=== PATIENT | female | born 1955 | race Caucasian/White ===

== ENCOUNTER → 2016-05-05 | Outpatient (CLI) | payer OTHER ==
[~2016-05-05] MED LIST: ASPI81TA28 PO; BENZ100C84 PO; CALC-51 PO; CETI10TA84 PO; COEN100C7 PO; MOME110A INH; MULT-513 PO; OMEG10007 PO; PANT40TA PO; PRAV20TA PO; VNTHFA/IN INH
== END | disposition home or self-care (01) ==
LOC: C.PAPS 16:34
PROVIDERS: ATTEND Obstetrics & Gynecology
DX: Z01.419 Encounter for gynecological examination (general) (routine) without abnormal findings (principal)

== ENCOUNTER → 2016-05-19 | Outpatient (CLI) | payer OTHER ==
--- NOTE | 2016-05-20 12:25 | MAMMOGRAPHY REPORT ---
BILATERAL DIGITAL SCREENING MAMMOGRAM WITH CAD: 05/19/2016 CLINICAL HISTORY: Routine screening examination. TECHNIQUE: Current study was also evaluated with a Computer Aided Detection (CAD) system. COMPARISON: Comparison is made to exams dated: 05/15/2015 mammogram, 04/20/2014 mammogram, 03/01/2013 mammogram, and 04/25/2009 mammogram - [facility]. BREAST COMPOSITION: There are scattered areas of fibroglandular density in both breasts. FINDINGS: The parenchymal pattern is unchanged. No developing mass, architectural distortion or clu ster of suspicious microcalcifications is seen in either breast. IMPRESSION: ACR BI-RADS CATEGORY 2: BENIGN There is no mammographic evidence of malignancy. A 1 year screening mammogram is recommended. The p atient will receive written notification of the results. Approximately 10% of breast cancers are not detected with mammography. A negative mammographic repor t should not delay biopsy if a clinically suggestive mass is present. Antionette Villaseñor M.D. ay/:05/19/2016 15:14:20 Singeing Torch Operator: Ness IBARRA(Sina)(Albertina), [facility] letter sent: Normal 1/2 BI-RADS Code: ACR BI-RADS Category 2: Benign
== END | disposition home or self-care (01) ==
LOC: C.MAMM 10:27
PROVIDERS: ATTEND Obstetrics & Gynecology
DX: Z12.31 Encounter for screening mammogram for malignant neoplasm of breast (principal)

== ENCOUNTER 2016-06-12 20:56 | Emergency (ER) | payer OTHER ==
[~2016-06-12] VITALS: Ht 157.5 cm; Wt 78.2 kg
[2016-06-12 21:07] VITALS: TEMP 36.9; Ht 157.5 cm; Wt 78.2 kg
[2016-06-12 21:25] VITALS: O2SAT 97
[2016-06-12] MEDS ORDERED: PANT40TA PO (21:40)
[2016-06-12] MEDS ORDERED: CETI10TA84 PO (21:40)
[2016-06-12] MEDS ORDERED: COEN100C7 PO (21:40)
[2016-06-12] MEDS ORDERED: ASPI81TA28 PO (21:40)
[2016-06-12] MEDS ORDERED: CALC-51 PO (21:40)
[2016-06-12] MEDS ORDERED: BENZ100C84 PO (21:40)
[2016-06-12] MEDS ORDERED: PRAV20TA PO (21:40)
[2016-06-12] MEDS ORDERED: VNTHFA/IN INH (21:40)
[2016-06-12] MEDS ORDERED: OMEG10007 PO (21:40)
[2016-06-12] MEDS ORDERED: MOME110A INH (21:40)
[2016-06-12] MEDS ORDERED: MULT-513 PO (21:40)
[2016-06-12 22:17] LABS: BASO % 0.4 %; BASO ABS # 0.03 K/uL (0-0.2); COMPLETE YES; EOS % 2.6 %; IG% 0.1 %; LYMPH % 43.1 %; MEAN CELL VOLUME 90.3 fL (80-100); MEAN CORPUSCULAR HEMOGLOBIN 30.8 pg (25-34); MEAN CORPUSCULAR HGB CONC 34.1 g/dl (32-36); MEAN PLATELET VOLUME 9.1 fL (7.4-10.4); MONO % 9.5 %; NEUT % 44.3 %; PLATELET COUNT 288 K/uL (130-400); RED BLOOD COUNT 4.54 M/uL (4.2-5.4); WHITE BLOOD COUNT 6.96 K/uL (4.8-10.8)
[2016-06-12 22:32] LABS: PARTIAL THROMBOPLASTIN RATIO 1.1; PROTHROMBIN TIME (PATIENT) 10.6 SECONDS (9.0-12.0)
[2016-06-12 22:36] LABS: ALT/SGPT 21 U/L (12-78); BLOOD UREA NITROGEN 24 mg/dl (7-18); BUN/CREATININE RATIO 21.7 (10-20); CALCIUM 9.3 mg/dl (8.5-10.1); CARBON DIOXIDE 29 mmol/L (21-32); CHLORIDE 103 mmol/L (98-107); GLUCOSE 94 mg/dl (70-99); POTASSIUM 3.5 mmol/L (3.5-5.1); SODIUM 139 mmol/L (136-145)
[2016-06-12 22:41] LABS: ALKALINE PHOSPHATASE 85 U/L (45-117); AST/SGOT 18 U/L (15-37)
[2016-06-12 23:46] VITALS: BP 126/71; PULSE 86; O2SAT 95
--- NOTE | 2016-06-13 01:30 | EMERGENCY ROOM VISIT NOTE ---
ED Visit Note First contact with patient: 22:59 Chief Complaint: Palpitations. History of Present Illness: Ms. Hurley is a 60 year-old white female who ambulates into the ED accompanied by male friend complaining of heart palpitations. Historically patient reports she started experiencing palpitations on Thursday, 5 days ago. She reports initially they were intermittent. She was seen at her PCPs office on Thursday and reported an EKG was performed which showed PVCs. She was discharged to home. She was set up for laboratory testing today and Holter monitoring next week. Patient reports a acute onset of worsening palpitations that started approximately 12 hours prior to arrival at the hospital. Since that time she reports they have been intermittent and at times had been more severe and at other times less severe. Associated with her palpitations she reports that approximately 7 hours ago she developed a warm sensation over the upper midsternal area that extended into the lateral aspect of the left neck and upper left arm. Currently she rates that warm sensation 3/10. She has not identified any aggravating or alleviating factors related to those sensations. She has not taken any medications or therapies for that sensation prior to arrival at the hospital. She denies any associated symptoms including fevers, chills, sweats, skin eruptions, skin color changes, headache, dizziness, lightheadedness, orthopnea, dependent edema, previous clots, claudication, cramping, recent surgery/inactivity/extended travel, abdominal pain, nausea, vomiting, back/flank pain. Additionally she reports she did contact her family physician today who encouraged her to keep her upcoming appointment tomorrow morning. But patient did report she was not comfortable waiting and worrying all night about her palpitations. Review of Systems: As noted above in history of present illness. All body systems were reviewed and found to be negative as noted above. Past Medical History: Asthma, gastroesophageal reflux. Current Medications: Medications Dose Route/Sig Max Daily Dose Days Date Category Zyrtec (Cetirizine HCl) 10 Mg Tab 10 Mg PO DAILY 06/12/16 Reported Ventolin Hfa (Albuterol) 200 Puffs/74371 Mcg Aers 1-2 Puffs INH Q6H PRN 06/12/16 Reported Pravachol (Pravastatin Sodium) 20 Mg Tab 20 Mg PO HS 06/12/16 Reported Protonix (Pantoprazole Sodium) 40 Mg Tab 40 Mg PO DAILY 06/12/16 Reported Mvi With Minerals (Multivitamins/Minerals) Tab 1 Tab PO DAILY 06/12/16 Reported Seymour-3 (Fish Oil) 1 Ea Cap 1 Cap PO DAILY 06/12/16 Reported Coq10 (Coenzyme Q10 (Ubidecarenone)) 100 Mg Cap 100 Mg PO DAILY 06/12/16 Reported Calcium (Calcium Carbonate-Vitamin D) 1 Tab Tab 2 Tabs PO DAILY 06/12/16 Reported Tessalon Perles (Benzonatate) 100 Mg Cap 100 Mg PO TID 06/12/16 Reported Aspirin Ec (Aspirin) 81 Mg Tab 81 Mg PO DAILY 06/12/16 Reported Asmanex 30 Metered Doses (Mometasone Furoate (Inhalation) 110 Mcg/Inh Aer 1 Puff INH DAILY PRN 06/12/16 Reported Allergies to Medications: Patient denies. Social History: Patient is currently employed; she feels safe in her home environment; she denies tobacco use. Physical Examination: Vital Signs: Date Time Temp Pulse Resp B/P Pulse Ox O2 Delivery O2 Flow Rate FiO2 06/12/16 23:46 86 18 126/71 95 06/12/16 22:26 78 16 132/76 95 06/12/16 21:25 97 Room Air 06/12/16 21:25 86 16 182/85 99 06/12/16 21:23 89 06/12/16 21:07 36.9 92 20 165/98 96 Room Air GENERAL: 60-year-old female in mild distress due to symptoms, nontoxic-appearing , afebrile and hemodynamically stable. Patient is very anxious. NEUROLOGICAL: Awake, alert and oriented to person, place and time. Answering questions appropriately and following commands. Normal gait. Good hand eye coordination. SKIN: Warm, dry and pink. No soft tissue eruptions or trauma noted. HEENT: Atraumatic and normocephalic. PERRL. Sclera white and conjunctiva pink. Oral cavity moist and pink. Pharynx is nonerythematous or edematous. Speech normal. No lymphadenopathy. Trachea midline. No jugular venous distention. BACK: No tenderness over the bony spine. No CVA tenderness. No carotid bruits. THORAX: Lungs sounds are clear to auscultation and equal bilaterally with symmetrical chest wall. No wheezing, rales or rhonchi. No crepitus, tenderness , subcutaneous air or deformities noted. HEART: Regular rate and rhythm. No gallops, rubs or murmurs are appreciated. No lifts, heaves or thrills. PMI is not displaced. ABDOMEN: Flat, soft and nontender. Positive bowel sounds in all quadrants. No guarding, rigidity or organomegaly. EXTREMITIES: Moves all extremities well on command and with purpose. All distal neurovascular statuses are intact and equal bilaterally. No dependent edema or calf tenderness/cords. ED Course: Patient is assessed as noted above. Laboratory Testing: Test 06/12/16 21:15 Range/Units White Blood Count 6.96 4.8-10.8 K/uL Red Blood Count 4.54 4.2-5.4 M/uL Hemoglobin 14.0 12.0-16.0 g/dL Hematocrit 41.0 37-47 % Mean Corpuscular Volume 90.3 80-100 fL Mean Corpuscular Hemoglobin 30.8 25-34 pg Mean Corpuscular Hemoglobin Concent 34.1 32-36 g/dl Platelet Count 288 130-400 K/uL Mean Platelet Volume 9.1 7.4-10.4 fL Neutrophils (%) (Auto) 44.3 % Lymphocytes (%) (Auto) 43.1 % Monocytes (%) (Auto) 9.5 % Eosinophils (%) (Auto) 2.6 % Basophils (%) (Auto) 0.4 % Neutrophils # (Auto) 3.08 1.4-6.5 K/uL Lymphocytes # (Auto) 3.00 1.2-3.4 K/uL Monocytes # (Auto) 0.66 0.11-0.59 K/uL Eosinophils # (Auto) 0.18 0-0.5 K/uL Basophils # (Auto) 0.03 0-0.2 K/uL RDW Standard Deviation 43.0 36.4-46.3 fL RDW Coefficient of Variation 13.1 11.5-14.5 % Immature Granulocyte % (Auto) 0.1 % Immature Granulocyte # (Auto) 0.01 0.00-0.02 K/uL Prothrombin Time 10.6 9.0-12.0 SECONDS Prothromb Time International Ratio 1.0 0.9-1.1 Activated Partial Thromboplast Time 27.7 21.0-31.0 SECONDS Partial Thromboplastin Ratio 1.1 Sodium Level 139 136-145 mmol/L Potassium Level 3.5 3.5-5.1 mmol/L Chloride Level 103 98-107 mmol/L Carbon Dioxide Level 29 21-32 mmol/L Anion Gap 7.0 3-11 mmol/L Blood Urea Nitrogen 24 7-18 mg/dl Creatinine 1.10 0.60-1.20 mg/dl Est Creatinine Clear Calc Drug Dose 51.4 ml/min Estimated GFR () 62.3 Estimated GFR (Non- 53.8 BUN/Creatinine Ratio 21.7 10-20 Random Glucose 94 70-99 mg/dl Calcium Level 9.3 8.5-10.1 mg/dl Total Bilirubin 0.4 0.2-1 mg/dl Aspartate Amino Transf (AST/SGOT) 18 15-37 U/L Alanine Aminotransferase (ALT/SGPT) 21 12-78 U/L Alkaline Phosphatase 85 45-117 U/L Troponin I < 0.015 0-0.045 ng/ml Total Protein 8.0 6.4-8.2 gm/dl Albumin 4.0 3.4-5.0 gm/dl Globulin 4.0 2.5-4.0 gm/dl Albumin/Globulin Ratio 1.0 0.9-2 EKG: Was read by myself and reviewed with Dr. Nova; shows normal sinus rhythm with a ventricular rate of 82 bpm. Normal axis, intervals and complexes. No acute ST changes indicating ischemia, injury or infarction. Rhythm strips: Were reviewed by myself and shows a continuous normal sinus rhythm with occasional unifocal PVCs no more than 2 PVCs per 6 seconds. Patient was reassessed multiple times during her stay in the emergency department. Patient's case was reviewed with Dr. Nova; we agreed on diagnostic approach , treatment, disposition and plan. Patient was educated about tonight's findings and instructed on her treatment plan; she verbalizes understanding and agreement with this plan Clinical Impression: Palpitations. Decision-Making: Initially my differential diagnosis I considered acute coronary syndrome, thoracic aneurysm, pneumothorax, arrhythmias and other causes. Disposition: Patient discharged home in stable condition accompanied by her ; prior to departure she was reassessed and subjectively reported she was still having some mild palpitations but had resolution of the warmness sensation. Plan: Patient was encouraged to keep her upcoming appointment with her primary care provider. Patient was encouraged return to the ED for chest pain, shortness of breath, uncontrolled palpitations or any new/concerning symptoms.
== END 2016-06-12 23:46 | disposition home or self-care (01) ==
LOC: C.EDB 20:58 → C.EDA 23:46
DX: R00.2 Palpitations (principal); K21.9 Gastro-esophageal reflux disease without esophagitis; J45.909 Unspecified asthma, uncomplicated; Z79.82 Long term (current) use of aspirin; Z79.899 Other long term (current) drug therapy

== ENCOUNTER → 2016-06-12 | Outpatient (CLI) | payer OTHER ==
[2016-06-12 12:22] LABS: BASO % 0.6 %; BASO ABS # 0.03 K/uL (0-0.2); COMPLETE YES; EOS % 3.3 %; HEMATOCRIT 40.3 % (37-47); IG% 0.2 %; LYMPH ABS # 2.19 K/uL (1.2-3.4); MEAN CELL VOLUME 88.6 fL (80-100); MEAN CORPUSCULAR HEMOGLOBIN 29.9 pg (25-34); MEAN CORPUSCULAR HGB CONC 33.7 g/dl (32-36); MEAN PLATELET VOLUME 9.1 fL (7.4-10.4); NEUT % 43.9 %; PLATELET COUNT 295 K/uL (130-400); RED BLOOD COUNT 4.55 M/uL (4.2-5.4); WHITE BLOOD COUNT 5.09 K/uL (4.8-10.8)
[2016-06-12 12:29] LABS: AST/SGOT 14 U/L (15-37); BLOOD UREA NITROGEN 18 mg/dl (7-18); BUN/CREATININE RATIO 18.4 (10-20); CALCIUM 9.1 mg/dl (8.5-10.1); CARBON DIOXIDE 25 mmol/L (21-32); CHLORIDE 106 mmol/L (98-107); GLUCOSE 93 mg/dl (70-99); POTASSIUM 3.9 mmol/L (3.5-5.1); SODIUM 140 mmol/L (136-145)
[2016-06-12 12:40] LABS: ALT/SGPT 21 U/L (12-78); CHOLESTEROL 208 mg/dl (0-200); CHOLESTEROL/HDL RATIO 3.1; HDL CHOLESTEROL 68 mg/dl; LDL CHOLESTEROL CALCULATED 122 mg/dl; TRIGLYCERIDES 92 mg/dl (0-150); VERY LOW DENSITY LIPOPROT CALC 18 mg/dl
== END | disposition home or self-care (01) ==
LOC: C.LABPBG 07:47
PROVIDERS: ATTEND Physician Assistant
DX: R31.29 Other microscopic hematuria (principal); E78.5 Hyperlipidemia, unspecified

== ENCOUNTER → 2016-07-03 | Outpatient (CLI) | payer OTHER ==
--- NOTE | 2016-07-03 08:54 | DIAGNOSTIC IMAGING REPORT ---
CHEST 2 VIEWS ROUTINE HISTORY: R06.02 SOB (shortness of breath) on [id number] COMPARISON: Chest 03/08/2015. FINDINGS: The lungs are clear. Cardiac silhouette is normal in size. No pleural effusions. No pneumothorax. IMPRESSION: No acute process. Electronically signed by: Denis Borden M.D. 07/03/2016 8:52 AM Dictated Date/Time: 07/03/2016 8:51 AM
[2016-07-03 09:54] LABS: URINE APPEARANCE CLEAR (CLEAR); URINE BILIRUBIN NEG (NEG); URINE COLOR YELLOW; URINE EPITHELIAL CELL AUTO 0-5 /lpf (0-5); URINE NITRITE NEG (NEG); URINE PH 5.5 (4.5-7.5); URINE SPECIFIC GRAVITY 1.018 (1.000-1.030); UROBILINOGEN NEG (NEG)
[2016-07-03 10:04] LABS: MANUAL MICROSCOPIC REQUIRED? NO; REVIEW REQ? NO
== END | disposition home or self-care (01) ==
LOC: C.RAD1850 08:08
PROVIDERS: ATTEND Internal Medicine
DX: R06.02 Shortness of breath (principal); R39.9 Unspecified symptoms and signs involving the genitourinary system

== ENCOUNTER → 2016-11-06 | Outpatient (CLI) | payer OTHER ==
[2016-11-06 12:50] LABS: HEMATOCRIT 39.5 % (37-47); MEAN CELL VOLUME 92.3 fL (80-100); MEAN CORPUSCULAR HEMOGLOBIN 30.1 pg (25-34); MEAN CORPUSCULAR HGB CONC 32.7 g/dl (32-36); MEAN PLATELET VOLUME 9.4 fL (7.4-10.4); PLATELET COUNT 291 K/uL (130-400); RED BLOOD COUNT 4.28 M/uL (4.2-5.4); WHITE BLOOD COUNT 4.79 K/uL (4.8-10.8)
[2016-11-06 13:32] LABS: ALT/SGPT 20 U/L (12-78); AST/SGOT 15 U/L (15-37); BLOOD UREA NITROGEN 18 mg/dl (7-18); BUN/CREATININE RATIO 19.4 (10-20); CALCIUM 8.7 mg/dl (8.5-10.1); CARBON DIOXIDE 27 mmol/L (21-32); CHLORIDE 108 mmol/L (98-107); CHOLESTEROL 204 mg/dl (0-200); CREATININE 0.93 mg/dl (0.60-1.20); GLUCOSE 92 mg/dl (70-99); SODIUM 140 mmol/L (136-145)
[2016-11-06 13:42] LABS: CHOLESTEROL/HDL RATIO 3.5; HDL CHOLESTEROL 59 mg/dl; LDL CHOLESTEROL CALCULATED 126 mg/dl; TRIGLYCERIDES 96 mg/dl (0-150); VERY LOW DENSITY LIPOPROT CALC 19 mg/dl
== END | disposition home or self-care (01) ==
LOC: C.LABPBG 08:07
PROVIDERS: ATTEND Internal Medicine
DX: E78.5 Hyperlipidemia, unspecified (principal); R00.2 Palpitations

== ENCOUNTER → 2017-04-03 | Outpatient (CLI) | payer OTHER ==
[2017-04-03 17:20] LABS: BASO % 0.8 %; BASO ABS # 0.04 K/uL (0-0.2); EOS % 2.5 %; EOS ABS # 0.12 K/uL (0-0.5); HEMOGLOBIN 13.7 g/dL (12.0-16.0); LYMPH % 32.6 %; LYMPH ABS # 1.56 K/uL (1.2-3.4); MEAN CELL VOLUME 91.9 fL (80-100); MEAN CORPUSCULAR HEMOGLOBIN 30.7 pg (25-34); MEAN CORPUSCULAR HGB CONC 33.4 g/dl (32-36); MEAN PLATELET VOLUME 9.3 fL (7.4-10.4); MONO % 7.5 %; MONO ABS # 0.36 K/uL (0.11-0.59); NEUT % 56.6 %; PLATELET COUNT 279 K/uL (130-400); RED CELL DISTRIBUTION WIDTH CV 12.8 % (11.5-14.5); RED CELL DISTRIBUTION WIDTH SD 43.2 fL (36.4-46.3); WHITE BLOOD COUNT 4.78 K/uL (4.8-10.8)
[2017-04-03 17:31] LABS: ALT/SGPT 23 U/L (12-78); AST/SGOT 16 U/L (15-37); BLOOD UREA NITROGEN 15 mg/dl (7-18); CALCIUM 9.3 mg/dl (8.5-10.1); CARBON DIOXIDE 30 mmol/L (21-32); CHOLESTEROL 186 mg/dl (0-200); CREATININE 0.98 mg/dl (0.60-1.20); GLUCOSE 92 mg/dl (70-99); POTASSIUM 3.9 mmol/L (3.5-5.1); SODIUM 136 mmol/L (136-145)
[2017-04-03 17:36] LABS: LDL CHOLESTEROL CALCULATED 105 mg/dl
== END | disposition home or self-care (01) ==
LOC: C.LABPBG 10:52
PROVIDERS: ATTEND Internal Medicine
DX: R19.5 Other fecal abnormalities (principal)

== ENCOUNTER → 2017-06-02 | Outpatient (CLI) | payer OTHER ==
--- NOTE | 2017-06-03 15:36 | MAMMOGRAPHY REPORT ---
BILATERAL DIGITAL SCREENING MAMMOGRAM TOMOSYNTHESIS WITH CAD: 06/02/2017 CLINICAL HISTORY: Routine screening. Patient has no complaints. TECHNIQUE: Breast tomosynthesis in addition to standard 2D mammography was performed. Current study was also evaluated with a Computer Aided Detection (CAD) system. COMPARISON: Comparison is made to exams dated: 05/19/2016 mammogram, 05/15/2015 mammogram, 04/20/2014 m ammogram, 03/01/2013 mammogram, 04/25/2009 mammogram - [facility], and 12/09/2007. BREAST COMPOSITION: There are scattered areas of fibroglandular density in both breasts. FINDINGS: The parenchymal pattern is unchanged. No developing mass, architectural distortion or clus ter of suspicious microcalcifications is seen in either breast. IMPRESSION: ACR BI-RADS CATEGORY 2: BENIGN There is no mammographic evidence of malignancy. A 1 year screening mammogram is recommended. The pa tient will receive written notification of the results. Approximately 10% of breast cancers are not detected with mammography. A negative mammographic report should not delay biopsy if a clinically suggestive mass is present. Antionette Villaseñor M.D. ay/:06/02/2017 16:19:55 Top Distribution Executive: Mey IBARRA(Sina)(M), [facility] letter sent: Normal 1/2 BI-RADS Code: ACR BI-RADS Category 2: Benign
== END | disposition home or self-care (01) ==
LOC: C.MAMM 10:19
PROVIDERS: ATTEND Obstetrics & Gynecology
DX: Z12.31 Encounter for screening mammogram for malignant neoplasm of breast (principal)

== ENCOUNTER → 2017-07-08 | Outpatient (CLI) | payer OTHER ==
[2017-07-08 15:45] LABS: BASO % 0.5 %; BASO ABS # 0.03 K/uL (0-0.2); EOS % 1.5 %; EOS ABS # 0.09 K/uL (0-0.5); HEMATOCRIT 39.6 % (37-47); HEMOGLOBIN 13.4 g/dL (12.0-16.0); IG# 0.01 K/uL (0.00-0.02); LYMPH ABS # 2.45 K/uL (1.2-3.4); MEAN CELL VOLUME 90.4 fL (80-100); MEAN CORPUSCULAR HEMOGLOBIN 30.6 pg (25-34); MEAN CORPUSCULAR HGB CONC 33.8 g/dl (32-36); MEAN PLATELET VOLUME 8.8 fL (7.4-10.4); MONO % 10.1 %; MONO ABS # 0.59 K/uL (0.11-0.59); NEUT % 45.7 %; NEUT ABS # 2.66 K/uL (1.4-6.5); PLATELET COUNT 306 K/uL (130-400); RED CELL DISTRIBUTION WIDTH CV 12.4 % (11.5-14.5); RED CELL DISTRIBUTION WIDTH SD 41.2 fL (36.4-46.3); WHITE BLOOD COUNT 5.83 K/uL (4.8-10.8)
== END | disposition home or self-care (01) ==
LOC: C.LAB1850 14:46
PROVIDERS: ATTEND Nurse Practitioner Adult Health
DX: R19.7 Diarrhea, unspecified (principal)

== ENCOUNTER → 2017-07-09 | Outpatient (CLI) | payer OTHER | END | disposition home or self-care (01) | LOC: C.LABSPEC 10:04 | PROVIDERS: ATTEND Nurse Practitioner Adult Health | DX: R19.7 Diarrhea, unspecified (principal) ==

== ENCOUNTER → 2017-07-24 | Outpatient (CLI) | payer OTHER | END | disposition home or self-care (01) | LOC: C.PAPS 12:15 | PROVIDERS: ATTEND Obstetrics & Gynecology | DX: Z01.419 Encounter for gynecological examination (general) (routine) without abnormal findings (principal) ==

== ENCOUNTER 2018-09-22 18:18 | Observation (INO) ==
[2018-09-22] MEDS ORDERED: cefOXitin 2,000 MG/60 ML BAG IV STA (18:43)
--- NOTE | 2018-09-22 19:17 | XRay Report ---
XR chest 1V portable CLINICAL HISTORY: Preoperative chest COMPARISON STUDY: June 2016 FINDINGS: The heart is at the upper limits of normal in size. There is no failure. There is no focal pulmonary consolidation. There are no pleural effusions.[ IMPRESSION: No active disease in the chest. Electronically signed by: Trell Suggs M.D. 09/22/2018 7:15 PM
[2018-09-22 19:19] LABS: Basophils # (auto) 0.03 K/uL (0-0.2); Basophils % (auto) 0.4 %; Eosinophils # (auto) 0.18 K/uL (0-0.5); Eosinophils % (auto) 2.6 %; Hematocrit (blood only) 40.8 % (37-47); Hemoglobin 13.8 g/dL (12.0-16.0); Immature Granulocytes # (auto) 0.02 K/uL (0.00-0.02); Immature Granulocytes % (auto) 0.3 %; Lymphocytes # (auto) 3.22 K/uL (1.2-3.4); Lymphocytes % (auto) 46.7 %; Mean Corpuscular Hgb Conc 33.8 g/dL (32-36); Mean Corpuscular Volume 92.5 fL (80-100); Monocytes # (auto) 0.65 K/uL (0.11-0.59); Monocytes % (auto) 9.4 %; Neutrophils % (auto) 40.6 %; Platelet Count 298 K/uL (130-400); RDW Coefficient of Variation 12.7 % (11.5-14.5); RDW Standard Deviation 42.8 fL (36.4-46.3); Red Blood Count 4.41 M/uL (4.2-5.4)
[2018-09-22 19:49] LABS: Alanine Aminotransferase 23 U/L (12-78); Albumin Globulin Ratio 0.9 (0.9-2); Alkaline Phosphatase 90 U/L (45-117); BUN Creatinine Ratio 16.3 (10-20); Bilirubin,Total 0.3 mg/dl (0.2-1); Blood Urea Nitrogen 17 mg/dl (7-18); Calcium 9.3 mg/dl (8.5-10.1); Carbon Dioxide 26 mmol/L (21-32); Chloride 106 mmol/L (98-107); Est GFR (African American) 63.8; Est GFR (Non-African American) 55.1; Globulin 4.2 gm/dl (2.5-4.0); Glucose 89 mg/dl (70-99); Sodium 140 mmol/L (136-145); Total Protein 8.2 gm/dl (6.4-8.2)
[2018-09-22 20:00] LABS: Appearance Urine Clear (Clear); Bacteria Urine Automated Negative (Negative); Bilirubin Urine Negative (Negative); Blood Urine 3+ (Negative); Color Urine Yellow; Glucose Urine UA Negative (Negative); Ketones Urine Negative (Negative); Leukocyte Esterase Urine Negative (Negative); Nitrite Urine Negative (Negative); Protein Urine Negative (Negative); RBC Urine Automated >30 /hpf (0-4); Specific Gravity Urine 1.023 (1.000-1.030); Urobilinogen Urine Negative (Negative)
[2018-09-22] MEDS ORDERED: HEPARIN SOD (PORCINE) 5,000 UNITS/ML VIAL ONE (20:49)
[2018-09-22] MEDS ORDERED: BUPIVACAINE 0.5 % 5 MG/1 ML MPF 30ML VIAL ONE (20:50)
[2018-09-22] MEDS ORDERED: CEFAZOLIN 250 MG/ML 1 GM VIAL ONE (20:50)
--- NOTE | 2018-09-22 20:52 | History & Physical Report ---
Date of Service September 22, 2018 Assessment & Plan (1) Acute appendicitis: This patient's history, physical findings, laboratories and CT findings are consistent with appendicitis. I have reviewed the report as well as the CAT scan images. I have recommended a laparoscopic appendectomy. I explained the possible need to convert to an open procedure. I explained the possible complications associated with those procedures. The patient wishes to go ahead with surgery and has signed a consent form. Present on Admission?: Yes History of Present Illness Chief Complaint: Right lower quadrant pain Primary Care Provider: Yoandy Fernandes MD This is a 63-year-old female who was sent to the emergency room after a CAT scan demonstrated a dilated appendix at 9 mm with mild periappendiceal inflammation. The patient had been having lower abdominal discomfort on the right side that began 4 days ago. It was initially lower in the suprapubic area but the next day it was then in the right lower quadrant near McBurney's point. It is a dull ache. There was sharp component and nausea initially. She had not vomited. Her bowels have been moving without change. There is no melena or hematochezia. She is never had pain like this before. It is not exacerbated by movement. It does not radiate through to her back or into the left side. She thinks she may have been warm on the day the pain began however she did not take her temperature. She has not felt that same way since. Allergies Allergy/AdvReac Type Severity Reaction Status Date / Time No Known Allergies Allergy Verified 09/22/18 20:20 Home Medications Home Medications Medication Instructions Recorded Confirmed Type albuterol sulfate HFA 90 2 puffs INH Q6H PRN #18 gm 09/20/18 09/22/18 Rx mcg/actuation aerosol inhaler aspirin 81 mg tablet,delayed 81 mg PO DAILY #30 tab 09/20/18 09/22/18 Rx release atenolol 25 mg tablet 12.5 mg PO DAILY #90 tab 09/20/18 09/22/18 Rx calcium carbonate 500 mg calcium 500 mg PO DAILY #30 tab 09/20/18 09/22/18 Rx (1,250 mg) tablet cetirizine 10 mg tablet 5 mg PO DAILY PRN #30 tab 09/20/18 09/22/18 Rx ferrous gluconate 240 mg (27 mg 240 mg PO 3XWK tab 09/20/18 09/22/18 History iron) tablet multivit with min #53-FA 200 1 cap PO DAILY #30 cap 09/20/18 09/22/18 Rx mcg-vit K 1,000 mcg-coQ10 10 mg capsule omega-3 fatty acids 1,000 mg 1,000 mg PO DAILY #30 cap 09/20/18 09/22/18 Rx capsule ranitidine 150 mg tablet 150 - 300 mg PO DAILY #60 tab 09/20/18 09/22/18 History rosuvastatin 5 mg tablet 5 mg PO HS #90 tab 09/20/18 09/22/18 History loratadine [Allergy Relief 10 mg PO DAILY PRN 09/22/18 09/22/18 History (loratadine)] Past Med/Surg History Medical History Skin cancer PVC (premature ventricular contraction) H/O tooth extraction Surgical History H/O section X 3 H/O colonoscopy History of hysteroscopy Hx of tonsillectomy S/P skin biopsy Family History Grandmother (Maternal) Breast cancer Uncle Colorectal cancer Grandmother (Paternal) Diabetes Father Hypertension Myocardial infarction Social History Preferred Language: Yi Visual Impairment: No Limitations Hearing Ability: Normal marital status: Current Living Situation: Spouse current occupational status: retired Feels Safe at Home: Yes Smoking Status: Never smoker Second Hand Exposure: No Hx Alcohol Use: No Hx Substance Use: No Childhood Exposure to Second-Hand Smoke: No Seatbelt Use: always Sunscreen Use: Yes Review of Systems Review of Systems: All systems reviewed & are unremarkable except as noted in HPI & below Physical Exam Constitutional: well developed and well nourished Neck: trachea midline Respiratory: normal respiratory effort, lungs clear to auscultation Cardiovascular: Rate/Rhythm: regular rate and regular rhythm Gastrointestinal (Abdomen): Inspection/Auscultation: normal bowel sounds; abdomen not distended Percussion/Palpation: + abdomen tender (To moderate palpation in the right lower quadrant mostly over McBurney's point) and abdomen soft Skin: no rashes, warm and dry Lymphatic: no cervical lymphadenopathy Results & Data Vital Signs (Past 12 Hours) Vital Signs Temp Pulse Pulse Resp BP BP Pulse Ox 09/22/18 20:43 71 18 142/83 H 97 09/22/18 19:38 95 09/22/18 19:35 70 18 140/92 95 09/22/18 18:20 36.8 C 79 18 164/90 H 96 Laboratory Results 09/22/18 09/22/18 09/22/18 Range/Units 19:35 19:02 19:02 WBC 6.90 (4.8-10.8) K/uL RBC 4.41 (4.2-5.4) M/uL Hgb 13.8 (12.0-16.0) g/dL Hct 40.8 (37-47) % MCV 92.5 (80-100) fL MCH 31.3 (25-34) pg MCHC 33.8 (32-36) g/dL RDW Std Deviation 42.8 (36.4-46.3) fL RDW Coeff of [place] 12.7 (11.5-14.5) % Plt Count 298 (130-400) K/uL MPV 9.0 (7.4-10.4) fL Immature Gran % (Auto) 0.3 % Neut % (Auto) 40.6 % Lymph % (Auto) 46.7 % [place] % (Auto) 9.4 % Eos % (Auto) 2.6 % Baso % (Auto) 0.4 % Immature Gran # (Auto) 0.02 (0.00-0.02) K/uL Neut # (Auto) 2.80 (1.4-6.5) K/uL Lymph # (Auto) 3.22 (1.2-3.4) K/uL [place] # (Auto) 0.65 H (0.11-0.59) K/uL Eos # (Auto) 0.18 (0-0.5) K/uL Baso # (Auto) 0.03 (0-0.2) K/uL Sodium 140 (136-145) mmol/L Potassium (3.5-5.1) mmol/L Chloride 106 (98-107) mmol/L Carbon Dioxide 26 (21-32) mmol/L Anion Gap 7.0 (3-11) BUN 17 (7-18) mg/dl Creatinine 1.06 (0.6-1.2) mg/dl Est Cr Clr Drug Dosing Not Reportable Est GFR ( Amer) 63.8 Est GFR (Non-Af Amer) 55.1 BUN/Creatinine Ratio 16.3 (10-20) Glucose 89 (70-99) mg/dl Calcium 9.3 (8.5-10.1) mg/dl Total Bilirubin 0.3 (0.2-1) mg/dl AST (15-37) U/L ALT 23 (12-78) U/L Alkaline Phosphatase 90 (45-117) U/L Total Protein 8.2 (6.4-8.2) gm/dl Albumin 4.0 (3.4-5.0) gm/dl Globulin 4.2 H (2.5-4.0) gm/dl Albumin/Globulin Ratio 0.9 (0.9-2) Lipase 230 (73-393) U/L Urine Color Yellow Urine Appearance Clear (Clear) Urine pH 6.0 (4.5-7.5) Ur Specific [place] 1.023 (1.000-1.030) Urine Protein Negative (Negative) Urine Glucose (UA) Negative (Negative) Urine Ketones Negative (Negative) Urine Blood 3+ H (Negative) Urine Nitrite Negative (Negative) Urine Bilirubin Negative (Negative) Urine Urobilinogen Negative (Negative) Ur Leukocyte Esterase Negative (Negative) Urine WBC (Auto) 5-10 H (0-5) /hpf Urine RBC (Auto) >30 H (0-4) /hpf U Hyaline Cast (Auto) 1-5 (0-5) /lpf U Epithel Cells (Auto) 5-10 H (0-5) /lpf Urine Bacteria (Auto) Negative (Negative) Diagnostic Findings CT SCAN OF THE ABDOMEN AND PELVIS WITHOUT CONTRAST CLINICAL HISTORY: Right lower quadrant abdominal pain COMPARISON STUDY: November 21, 2015 TECHNIQUE: CT scan of the abdomen and pelvis was performed from the lung bases to the proximal femurs. Images are reviewed in the axial, sagittal, and coronal planes. IV contrast was not administered for this examination. A dose lowering technique was utilized adhering to the principles of ALARA. CT DOSE: 512.55 mGy.cm FINDINGS: Lower chest: There are mild dependent atelectatic changes present. Liver: The unenhanced liver is normal in size, contour, and attenuation. There is no intrahepatic biliary ductal dilatation. Gallbladder: Contracted Spleen: Normal in size and attenuation. Pancreas: Unremarkable. Adrenal glands: Unremarkable. Kidneys: There is a 5 mm lower pole left renal calculus. No right renal calculi are visualized. There is no hydronephrosis. No ureteral calculi are visualized. Bowel: There are no transition zone to indicate bowel obstruction. There is no evidence of acute diverticulitis. There is a thickened appendix measuring 9 mm. There is minimal periappendiceal infiltration. Given the clinical history of right-sided pain, the findings are suspicious for early acute appendicitis. Peritoneum: There is no intraperitoneal free air or abdominal ascites. Vasculature: The abdominal aorta is normal in course and caliber. Adenopathy: None. Pelvic viscera: The bladder, and pelvic viscera are unremarkable. Skeletal structures: There is a grade 1 spondylolisthesis of L5 on S1. IMPRESSION: 1. Mild appendiceal thickening measuring 9 mm. This represents a caliber change when compared to prior 2016 study. There is very subtle periappendiceal infiltration. Given the reported clinical history, the findings are suspicious for early acute appendicitis 2. No evidence of bowel obstruction. No evidence of free air 3. No evidence of acute diverticulitis 4. Left-sided nephrolithiasis. No ureteral calculi identified (1) Acute appendicitis Acute appendicitis type: unspecified acute appendicitis type Qualified Code(s): K35.80 - Unspecified acute appendicitis
[2018-09-22] MEDS ORDERED: fentaNYL citrate 100 MCG/2 ML VIAL ONE (20:59)
--- NOTE | 2018-09-22 21:18 | Anesthesiology Consultation ---
Date of Service September 22, 2018 Assessment & Plan (1) Encounter for pre-operative examination: Chart Review Chart Review: Acceptable Risk for Surgery and Patient NOT seen in Pre Admission Testing Consults Requested none ASA [id number] Proposed Anesthesia Anesthesia Type: General Risk / Benefits Reviewed With: PT / POA / Parent / Guardian, Accepts Plan and In formed Consent Obtained History Surgery Operation Date: 09/22/18 20:45 Proposed Procedures p Laparoscopic Appendectomy - Rocky Mix MD Height/Weight Weight: 80.4 kg Allergies Allergy/AdvReac Type Severity Reaction Status Date / Time No Known Allergies Allergy Verified 09/22/18 20:20 Medications Home Medications Medication Instructions Recorded Confirmed Last Taken albuterol sulfate HFA 90 2 puffs INH Q6H PRN #18 gm 09/20/18 09/22/18 Unknown mcg/actuation aerosol inhaler aspirin 81 mg tablet,delayed 81 mg PO DAILY #30 tab 09/20/18 09/22/18 Unknown release atenolol 25 mg tablet 12.5 mg PO DAILY #90 tab 09/20/18 09/22/18 Unknown calcium carbonate 500 mg calcium 500 mg PO DAILY #30 tab 09/20/18 09/22/18 Unknown (1,250 mg) tablet cetirizine 10 mg tablet 5 mg PO DAILY PRN #30 tab 09/20/18 09/22/18 Unknown ferrous gluconate 240 mg (27 mg 240 mg PO [id number] tab 09/20/18 09/22/18 Unknown iron) tablet multivit with min #53-FA 200 1 cap PO DAILY #30 cap 09/20/18 09/22/18 Unknown mcg-vit K 1,000 mcg-coQ10 10 mg capsule omega-3 fatty acids 1,000 mg 1,000 mg PO DAILY #30 cap 09/20/18 09/22/18 Unknown capsule ranitidine 150 mg tablet 150 - 300 mg PO DAILY #60 tab 09/20/18 09/22/18 Unknown rosuvastatin 5 mg tablet 5 mg PO HS #90 tab 09/20/18 09/22/18 Unknown loratadine [Allergy Relief 10 mg PO DAILY PRN 09/22/18 09/22/18 Unknown (loratadine)] NPO Date Last Intake of Fluids: 09/22/18 Time Last Intake of Fluids: 12:00 Date Last Intake of Solids: 09/22/18 Time Last Intake of Solids: 14:00 Last Intake of Solids Comment: M&Ms Past Medical History Medical History Skin cancer PVC (premature ventricular contraction) H/O tooth extraction Exercise / Class Metabolic Activity II 4-5 Yardwork/Stairs/Walk up hill Past Family History Family History Grandmother (Maternal) Breast cancer Uncle Colorectal cancer Grandmother (Paternal) Diabetes Father Hypertension Myocardial infarction Past Surgical History Surgical History H/O section X 3 H/O colonoscopy History of hysteroscopy Hx of tonsillectomy S/P skin biopsy Past Anesthesia History No Hx of Anesthesia Complications and No Family Hx of Anesthesia Complications History of PONV No Hx of PONV and No Hx of Motion Sickness Social History Smoking Status: Never smoker Hx Alcohol Use: No Hx Substance Use: No Physical Exam Vital Signs Last Vital Signs Temp 36.8 C 09/22/18 18:20 Pulse 71 09/22/18 20:43 Resp 18 09/22/18 20:43 BP 142/83 H 09/22/18 20:43 Pulse Ox 97 09/22/18 20:43 ENMT Mouth: no dentition abnormality Thyromental Distance: > or= 3.5 Finger Breadths Mallampati Class: II Neck normal visual inspection Respiratory normal respiratory effort Auscultation: lungs clear to auscultation bilaterally Cardiovascular Rate/Rhythm: regular rate and regular rhythm Psychiatric Orientation: alert Testing Laboratory Results 09/22/18 19:02 09/22/18 19:02 Urine Color Yellow 09/22/18 19:35 Urine Appearance Clear (Clear) 09/22/18 19:35 Urine pH 6.0 (4.5-7.5) 09/22/18 19:35 Ur Specific [place] 1.023 (1.000-1.030) 09/22/18 19:35 Urine Protein Negative (Negative) 09/22/18 19:35 Urine Glucose (UA) Negative (Negative) 09/22/18 19:35 Urine Ketones Negative (Negative) 09/22/18 19:35 Urine Nitrite Negative (Negative) 09/22/18 19:35 Ur Leukocyte Esterase Negative (Negative) 09/22/18 19:35 Urine WBC (Auto) 5-10 /hpf (0-5) H 09/22/18 19:35 Urine RBC (Auto) >30 /hpf (0-4) H 09/22/18 19:35 U Hyaline Cast (Auto) 1-5 /lpf (0-5) 09/22/18 19:35 U Epithel Cells (Auto) 5-10 /lpf (0-5) H 09/22/18 19:35 Urine Bacteria (Auto) Negative (Negative) 09/22/18 19:35 Electrocardiogram Date: 09/22/18 Findings: + NSR @ Chest X-Ray Date: 09/22/18 Findings: + NAD
[2018-09-22] MEDS ORDERED: MoRPHine SULFATE PF 1 MG/ML 10 ML AMP/VIAL ONE (21:38)
[2018-09-22] MEDS ORDERED: SUCCINYLCHOLINE CHLORIDE 20 MG/ML 10 ML VIAL ONE (22:01)
[2018-09-22] MEDS ORDERED: GLYCOPYRROLATE 0.2 MG/ML VIAL ONE (22:01)
[2018-09-22] MEDS ORDERED: DEXAMETHASONE SOD INJ 4 MG/ML VIAL ONE (22:01)
[2018-09-22] MEDS ORDERED: NEOSTIGMINE METHYLSULFATE 5 MG/5 ML SYR ONE (22:01)
[2018-09-22] MEDS ORDERED: LIDOCAINE HCL 2% 2 ML VIAL/AMP(20MG/ML) INFIL ONE (22:01)
[2018-09-22] MEDS ORDERED: PROPOFOL IV EMULSION 10 MG/ML 20 ML VIAL IV ONE (22:01)
[2018-09-22] MEDS ORDERED: ROCURONIUM BROMIDE 10 MG/ML 5 ML VIAL ONE (22:01)
[2018-09-22] MEDS ORDERED: ONDANSETRON INJ 2 MG/ML 2 ML VIAL ONE ×2 (22:01→22:02)
[2018-09-22] MEDS ORDERED: KETOROLAC 30 MG/ML VIAL ONE (22:02)
--- NOTE | 2018-09-22 22:24 | Post Operative Brief Note ---
Immediate Post Op Note v1 Date of Surgery September 22, 2018 Pre & Post Diagnosis Operation Date: 09/22/18 20:45 Pre-Op Diagnosis: Acute Appendicitis Post-Op Diagnosis: Acute Appendicitis Procedure Operation Date: 09/22/18 20:45 Actual Procedures p Laparoscopic Appendectomy(Not Applicable) - Rocky Mix MD Surgeon Rocky Mix MD Gas Treater None Estimated Blood Loss 5 Findings Consistent with Post-Op Diagnosis Specimens Appendix Drains Angel Catheter (Inserted under anesthesia by Humberto Lizarraga RN.) Anesthesia Type General Complications none
[2018-09-22] MEDS ORDERED: SUGAMMADEX SODIUM 200 MG/2 ML VIAL IV ONE (22:29)
[2018-09-22] MEDS ORDERED: ePHEDrine sulfate 50 MG/ML AMP IV PRN (22:49)
[2018-09-22] MEDS ORDERED: HYDROmorphone INJ 1 MG/ML SYRINGE IV PRN (22:49)
[2018-09-22] MEDS ORDERED: PROMETHAZINE HCL 6.25 MG in SODIUM CHLORIDE 0.9% 50 ML IV PRN (22:49)
[2018-09-22] MEDS ORDERED: ATROPINE SULFATE 0.1 MG/ML 10ML SYR IV PRN (22:49)
[2018-09-22] MEDS ORDERED: fentaNYL citrate 100 MCG/2 ML VIAL IV PRN (22:49)
[2018-09-22] MEDS ORDERED: ONDANSETRON INJ 2 MG/ML 2 ML VIAL IV PRN ×2 (22:49→23:51)
--- NOTE | 2018-09-22 23:31 | Anesthesiology Progress Note ---
Date of Service September 22, 2018 Anesthesia Post Procedure Vital Signs Vital Signs: Temp Pulse Pulse Pulse Resp BP BP 09/22/18 23:24 53 L 18 109/64 09/22/18 23:12 36.4 C L 52 L 18 120/60 09/22/18 23:05 62 18 118/65 09/22/18 22:55 62 18 123/69 09/22/18 22:45 64 18 124/68 09/22/18 22:36 36 C L 76 18 150/81 H 09/22/18 20:43 71 18 142/83 H 09/22/18 19:38 09/22/18 19:35 70 18 140/92 09/22/18 18:20 36.8 C 79 18 164/90 H Pulse Ox 09/22/18 23:24 93 09/22/18 23:12 97 09/22/18 23:05 99 09/22/18 22:55 99 09/22/18 22:45 99 09/22/18 22:36 98 09/22/18 20:43 97 09/22/18 19:38 95 09/22/18 19:35 95 09/22/18 18:20 96 Pain Intensity Abdomen: Pain Intensity: 1 Transfer of Care Handoff Completed per policy Notes Mental Status: alert / awake / arousable Patient Amnestic to Procedure: Yes Nausea / Vomiting: adequately controlled Pain: adequately controlled Airway Patency, RR, SpO2: stable & adequate BP & HR: stable & adequate Hydration State: stable & adequate Anesthetic Complications: no major complications apparent
[2018-09-22] MEDS ORDERED: OXYCODONE/ACETAMINOPHEN 5mg/325mg TAB PO PRN (23:51)
[2018-09-22] MEDS ORDERED: MoRPHine SULFATE 4 MG/ML 1 ML CARP\\VIAL IV PRN (23:51)
--- NOTE | 2018-09-23 01:11 | Operative Report ---
DATE OF OPERATION: 09/22/2018 DATE OF PROCEDURE: 09/22/2018 PREOPERATIVE DIAGNOSIS: Appendicitis. POSTOPERATIVE DIAGNOSIS: Appendicitis. PROCEDURE: Laparoscopic appendectomy. SURGEON: Rocky Mix MD FINDINGS: The appendix was hyperemic, dilated and firm in its distal two-thirds. The proximal one-third especially at the base was normal. The cecum at the base was normal. There was no evidence of perforation. There was no abscess. TECHNIQUE: The patient was given a general anesthetic and the area was prepped and draped in the usual sterile fashion. Transverse incision was made below the umbilicus, carried down through the subcutaneous tissue to the fascia which was grasped with 2 Ricardo clamps and incised between. The peritoneum was identified, incised, and the introducer was placed bluntly. The abdomen was then insufflated to a pressure of 15 mmHg with carbon dioxide. The lower midline introducer was placed under direct vision through small skin incisions. Traction was placed on the small bowel towards the left side. The appendix was easily identified. The left lower quadrant introducer was placed under direct vision through small skin incision. Traction was placed anteriorly on the appendix. It was easily elevated. The mesoappendix was long. I was able to establish a plane in the mid portion of the mesoappendix and the distal most portion was divided using the KIM stapler. That allowed me to elevate the appendix even further. I then was able to establish a plane between the base of the appendix and the mesoappendix at the level just above the cecum. The appendix was then amputated off the cecum using the Endo-KIM stapler. That allowed me to elevate that and then I identified the remainder of the mesoappendix, which was divided with the Endo-KMI stapler. The appendix was placed into an Endobag and brought out through the left lower quadrant introducer site. The introducer was replaced and the staple lines were inspected. There was no bleeding. The right lower quadrant was irrigated and irrigation removed. Any irrigation that entered the right upper quadrant was removed and any irrigation in the pelvis was removed. The staple lines were again inspected and there was no bleeding. The gas was allowed to escape and the introducers were removed. The fascia of the umbilical introducer site and the left lower quadrant introducer sites was closed with interrupted 0 Vicryl and skin of all the incisions was closed with 4-0 Monocryl in either an interrupted or running subcuticular fashion. The skin had been anesthetized prior to incision at all of the sites. The skin was cleansed, dried, benzoin placed, Steri-Strips applied. Estimated blood loss was 5 mL. Sponge, needle and instrument counts were correct x2 prior to closure. The patient tolerated the surgical procedure without complication and was transferred to recovery in stable condition. I attest to the content of the Intraoperative Record and any orders documented therein. Any exception s are noted below.
[2018-09-23] MEDS ORDERED: ATENOLOL 25 MG TABLET PO SCH ×2 (01:30→09:00)
--- NOTE | 2018-09-23 03:37 | Emergency Department Note ---
Entered by Toro Deng acting as a scribe for Guicho Alvarado MD ED Provider Note CHIEF COMPLAINT: Abnormal Testing HISTORY OF PRESENT ILLNESS: The patient is a 63 year old female who presents to the Emergency Room after having an abnormal CT scan done today that showed possible appendicitis. The p atient reports that she started having waxing and waning RLQ abdominal pain about 3 days ago. The patient states that her pain is mild and rates it as a 1/10. The patient also denies any severe nausea, but did note she has noticed feeling a "little off". The patient has not taken any pain medication for her symptoms. Pt denies LOC, headache, fevers, chills, diaphoresis, visual changes, neck pain, chest pain, breathing difficulties, vomiting, back pain, melena, hematochezia, urinary symptoms, numbness, weakness, lymphadenopathy, rash, or other complaints. REVIEW OF SYSTEMS: See HPI for pertinent positives and negatives. A total of ten systems were reviewed and were otherwise negative. PMHx/PSHx: PVC, Skin Cancer, Chronic hematuria SOCIAL HISTORY: Patient lives at home. PHYSICAL EXAM: GENERAL: Awake, alert, well-appearing, in no distress HENT: Normocephalic, atraumatic. Oropharynx unremarkable. EYES: Normal conjunctiva. Sclera non-icteric. NECK: Inspection normal. Non-tender. Supple. No nuchal rigidity. FROM. No masses. RESPIRATORY: Clear to auscultation. No wheezes. No rales. Normal respiratory effort. CARDIAC: Normal rate. Normal rhythm. No murmurs. No rubs. Extremities warm and well perfused. Pulses equal. No JVD. GI: Soft, non-distended. Rovsing's sign positive. No rebound or guarding. No masses. RECTAL: Deferred. MUSCULOSKELETAL: Atraumatic. Chest examination reveals no tenderness. The back is symmetrical on inspection without obvious abnormality. There is no CVA tenderness to palpation. No joint edema. LOWER EXTREMITIES: Calves are equal size bilaterally and non-tender. No edema. No discoloration. NEURO: Normal sensorium. No sensory or motor deficits noted. SKIN: No rash or jaundice noted. EMERGENCY DEPARTMENT COURSE: 1847: The patient was evaluated in room B09, and a complete history and physical examination were performed. 1909: I spoke to Dr. Mix - General Surgery about the patient's case and he will be accepting her for further evaluation and treatment. 194: I reevaluated the patient and updated her on the treatment plan. She understands and is in agreement with the plan. MEDICAL DECISION MAKING: Prior records/ancillary studies reviewed. Outpatient CT imaging report revealed as well as imaging, appendicitis found. Triage Nursing notes reviewed and agree them. The patient's history was concerning for abdominal pain. Differential diagnosis: Etiologies such as appendicitis, diverticulitis, PUD, biliary pathology, UTI, pancreatitis, obstruction, mesenteric ischemia, aortic pathology, infections, inflammatory bowel disease, renal colic, as well as others were entertained. Physical examination findings: As above. ER treatment provided: N.p.o. Monitoring IV Mefoxin On reassessment the patient felt better. Diagnostics interpreted by me: ECG: Normal The labs revealed an unremarkable CBC and chemistry panel. Imaging studies: Enlarged appendix noted in the right lower quadrant concerning for acute appendicitis. Consultation: A consultation was placed with the surgeon on-call, Dr. Rocky Mix. The case was discussed and diagnostics were reviewed. The patient was evaluated in the ER for further treatment. IMPRESSION: Acute appendicitis PLAN: Admitted as inpatient Impression & Plan Acute appendicitis Past Med/Surg History Medical History Skin cancer PVC (premature ventricular contraction) H/O tooth extraction Surgical History H/O section X 3 H/O colonoscopy History of hysteroscopy Hx of tonsillectomy S/P skin biopsy Family History Grandmother (Maternal) Breast cancer Uncle Colorectal cancer Grandmother (Paternal) Diabetes Father Hypertension Myocardial infarction Social History Preferred Language: Ecuadorean Communication Ability: Effective Visual Impairment: No Limitations Hearing Ability: Normal Cloud Physicist Required: No Beliefs That Will Affect Care: None marital status: Current Living Situation: Spouse current occupational status: retired Other Information That Helps Us Care for You: No Feels Safe at Home: Yes Safety Concerns: Feels Safe At This Time Smoking Status: Never smoker Second Hand Exposure: No Hx Alcohol Use: No Hx Substance Use: No Childhood Exposure to Second-Hand Smoke: No Seatbelt Use: always Sunscreen Use: Yes Results & Data Vital Signs Vital Signs - 24 hr 09/22/18 18:20 09/22/18 19:35 09/22/18 19:38 Temperature 36.8 C Temperature Source Oral Sepsis Recent Fever Within 48 Hours No Sepsis Action Taken by Nursing No Action Required Pulse Rate 79 Pulse Rate [Apical] Pulse Rate [Right Finger] 70 Pulse Rhythm [Apical] Respiratory Rate 18 18 Respiratory Effort / Characteristics Non-Labored Spontaneous Respiratory Depth Normal Respiratory Pattern Regular Blood Pressure 164/90 H Blood Pressure [Right Arm] 140/92 Blood Pressure Mean 114 Blood Pressure Mean [Right Arm] 108 Blood Pressure Position [Right Arm] Pulse Oximetry 96 95 95 Oxygen Delivery Method Room Air Room Air Room Air Oxygen Flow Rate 09/22/18 20:43 09/22/18 22:36 Temperature 36 C L Temperature Source Temporal Artery Scan Sepsis Recent Fever Within 48 Hours Sepsis Action Taken by Nursing Pulse Rate Pulse Rate [Apical] 76 Pulse Rate [Right Finger] 71 Pulse Rhythm [Apical] Regular Respiratory Rate 18 18 Respiratory Effort / Characteristics Non-Labored Spontaneous Respiratory Depth Normal Respiratory Pattern Regular Blood Pressure Blood Pressure [Right Arm] 142/83 H 150/81 H Blood Pressure Mean Blood Pressure Mean [Right Arm] 102 104 Blood Pressure Position [Right Arm] Lying Pulse Oximetry 97 98 Oxygen Delivery Method Room Air Nasal Cannula Oxygen Flow Rate 4 Home Medications Current Medication List: was personally reviewed by me Laboratory Data Attestation: I reviewed the patient's lab results. Result diagrams: 09/22/18 19:02 09/22/18 19:02 Lab Results 09/22/18 09/22/18 09/22/18 Range/Units 19:02 19:02 19:35 WBC 6.90 (4.8-10.8) K/uL RBC 4.41 (4.2-5.4) M/uL Hgb 13.8 (12.0-16.0) g/dL Hct 40.8 (37-47) % MCV 92.5 (80-100) fL MCH 31.3 (25-34) pg MCHC 33.8 (32-36) g/dL RDW Std Deviation 42.8 (36.4-46.3) fL RDW Coeff of [place]je[place] 12.7 (11.5-14.5) % Plt Count 298 (130-400) K/uL MPV 9.0 (7.4-10.4) fL Immature Gran % (Auto) 0.3 % Neut % (Auto) 40.6 % Lymph % (Auto) 46.7 % Me[place] % (Auto) 9.4 % Eos % (Auto) 2.6 % Baso % (Auto) 0.4 % Immature Gran # (Auto) 0.02 (0.00-0.02) K/uL Neut # (Auto) 2.80 (1.4-6.5) K/uL Lymph # (Auto) 3.22 (1.2-3.4) K/uL Meigs # (Auto) 0.65 H (0.11-0.59) K/uL Eos # (Auto) 0.18 (0-0.5) K/uL Baso # (Auto) 0.03 (0-0.2) K/uL Sodium 140 (136-145) mmol/L Potassium (3.5-5.1) mmol/L Chloride 106 (98-107) mmol/L Carbon Dioxide 26 (21-32) mmol/L Anion Gap 7.0 (3-11) BUN 17 (7-18) mg/dl Creatinine 1.06 (0.6-1.2) mg/dl Est Cr Clr Drug Dosing Not Reportable Est GFR ( Amer) 63.8 Est GFR (Non-Af Amer) 55.1 BUN/Creatinine Ratio 16.3 (10-20) Glucose 89 (70-99) mg/dl Calcium 9.3 (8.5-10.1) mg/dl Total Bilirubin 0.3 (0.2-1) mg/dl AST (15-37) U/L ALT 23 (12-78) U/L Alkaline Phosphatase 90 (45-117) U/L Total Protein 8.2 (6.4-8.2) gm/dl Albumin 4.0 (3.4-5.0) gm/dl Globulin 4.2 H (2.5-4.0) gm/dl Albumin/Globulin Ratio 0.9 (0.9-2) Lipase 230 (73-393) U/L Urine Color Yellow Urine Appearance Clear (Clear) Urine pH 6.0 (4.5-7.5) Ur Specific [place] 1.023 (1.000-1.030) Urine Protein Negative (Negative) Urine Glucose (UA) Negative (Negative) Urine Ketones Negative (Negative) Urine Blood 3+ H (Negative) Urine Nitrite Negative (Negative) Urine Bilirubin Negative (Negative) Urine Urobilinogen Negative (Negative) Ur Leukocyte Esterase Negative (Negative) Urine WBC (Auto) 5-10 H (0-5) /hpf Urine RBC (Auto) >30 H (0-4) /hpf U Hyaline Cast (Auto) 1-5 (0-5) /lpf U Epithel Cells (Auto) 5-10 H (0-5) /lpf Urine Bacteria (Auto) Negative (Negative) Administered Medications Atenolol (Tenormin) 12.5 mg PO HS ALIVIA Stop: 10/23/18 01:29 Last Admin: 09/23/18 02:24 Dose: Not Given Documented by: [id number] Discontinued Medications Bupivacaine HCl (Marcaine 0.5% Mpf) Confirm Administered Dose 30 ml .ROUTE .STK- MED ONE Stop: 09/22/18 20:51 Last Admin: 09/23/18 02:10 Dose: Not Given Documented by: [id number] Cefazolin Sodium (Ancef) Confirm Administered Dose 1,000 mg .ROUTE .STK-MED ONE Stop: 09/22/18 20:51 Last Admin: 09/22/18 22:11 Dose: 1,000 mg Documented by: [id number] Heparin Sodium (Porcine) (Heparin Sodium (Porcine)) Confirm Administered Dose 5,000 units .ROUTE .STK-MED ONE Stop: 09/22/18 20:50 Last Admin: 09/22/18 22:10 Dose: 5,000 units Documented by: [id number] Cefoxitin Sodium (Mefoxin) 2,000 mg in 60 mls @ 100 mls/hr IV NOW STA Stop: 09/22/18 19:18 Last Infusion: 09/22/18 20:19 Dose: 0 mls/hr Documented by: [id number] Admin: 09/22/18 19:38 Dose: 100 mls/hr Documented by: [id number] Imaging Data Radiologist's Impression: Radiology results as stated below per my review and the radiologist's interpretation: XR chest 1V portable CLINICAL HISTORY: Preoperative chest COMPARISON STUDY: June 2016 FINDINGS: The heart is at the upper limits of normal in size. There is no failure. There is no focal pulmonary consolidation. There are no pleural effusions.[ IMPRESSION: No active disease in the chest. Electronically signed by: Trell Suggs M.D. 09/22/2018 7:15 PM ECG Data Attestation: I personally reviewed and interpreted this ECG as follows: Indication: abdominal pain Rate (beats per minute): 68 Rhythm: normal sinus Findings: no PAC, no PVC, no ST depression and no ST elevation Blood Pressure Blood Pressure Findings: Elevated blood pressure Blood Pressure Disposition: Referred to patients primary care provider Discharge Plan Visit Data Chief Complaint: Abnormal Labs/Diagnostic Testing Stated Complaint: FINDINGS ARE SUSPICIOUS FOR EARLY ACUITE APPENDICI ED Provider: Guicho Alvarado Discharge Problem: Acute appendicitis Patient Disposition: Admitted As Inpatient Discharge Instructions Interventions: ED Discharge Assessment Last Done: 09/22/18 20:50 Discharge Problem: Acute appendicitis Qualifiers: Acute appendicitis type: unspecified acute appendicitis type Qualified Code(s): K35.80 - Unspecified acute appendicitis The scribe's documentation has been prepared under my direction and personally reviewed by me in its entirety. I confirm that the note above accurately reflects all work, treatment, procedures, and medical decision making performed by me.
--- NOTE | 2018-09-23 08:45 | Surgery Progress Note ---
Date of Service September 23, 2018 Assessment & Plan (1) Acute appendicitis: Postoperative day #1 status post laparoscopic appendectomy Doing well Can be discharged to home Discussed postoperative activity restrictions and encouraged ambulation Can follow-up in 3 weeks Subjective Postoperative day 1 status post laparoscopic appendectomy Feeling well this morning Has very little discomfort Has an appetite Past flatus Ambulating Physical Exam Gastrointestinal (Abdomen): Inspection/Auscultation: + abdominal surgical incision (Clean, dry and intact); abdomen not distended Percussion/Palpation: abdomen soft Results & Data Vital Signs (Past 12 Hours) Vital Signs Temp Pulse Pulse Pulse Pulse Resp BP 09/23/18 07:27 36.9 C 87 19 103/63 09/23/18 04:00 36.8 C 69 18 106/62 09/23/18 02:43 36.5 C 54 L 16 113/66 09/23/18 02:23 55 L 117/73 09/23/18 01:45 36.5 C 56 L 17 107/65 09/23/18 00:45 36.4 C L 62 17 106/63 09/23/18 00:15 36.4 C L 49 L 110/68 09/22/18 23:50 36.4 C L 50 L 16 110/70 09/22/18 23:24 53 L 18 09/22/18 23:12 36.4 C L 52 L 18 09/22/18 23:05 62 18 09/22/18 22:55 62 18 09/22/18 22:45 64 18 09/22/18 22:36 36 C L 76 18 09/22/18 20:43 71 18 BP Pulse Ox 09/23/18 07:27 96 09/23/18 04:00 94 09/23/18 02:43 91 09/23/18 02:23 09/23/18 01:45 94 09/23/18 00:45 91 09/23/18 00:15 91 09/22/18 23:50 89 L 09/22/18 23:24 109/64 93 09/22/18 23:12 120/60 97 09/22/18 23:05 118/65 99 09/22/18 22:55 123/69 99 09/22/18 22:45 124/68 99 09/22/18 22:36 150/81 H 98 07/03/19 20:43 142/83 H 97 (1) Acute appendicitis Acute appendicitis type: unspecified acute appendicitis type Qualified Code(s): K35.80 - Unspecified acute appendicitis
--- NOTE | 2018-09-23 08:49 | Discharge Summary ---
Date of Service September 23, 2018 Admission HPI Per Admitting Provider This is a 63-year-old female who was sent to the emergency room after a CAT scan demonstrated a dilated appendix at 9 mm with mild periappendiceal inflammation. The patient had been having lower abdominal discomfort on the right side that began 4 days ago. It was initially lower in the suprapubic area but the next day it was then in the right lower quadrant near McBurney's point. It is a dull ache. There was sharp component and nausea initially. She had not vomited. Her bowels have been moving without change. There is no melena or hematochezia. She is never had pain like this before. It is not exacerbated by movement. It does not radiate through to her back or into the left side. She thinks she may have been warm on the day the pain began however she did not take her temperature. She has not felt that same way since. Admission Exam Per Admitting Provider Constitutional: well developed and well nourished Neck: trachea midline Respiratory: normal respiratory effort, lungs clear to auscultation Cardiovascular: Rate/Rhythm: regular rate and regular rhythm Gastrointestinal (Abdomen): Inspection/Auscultation: normal bowel sounds; abdomen not distended Percussion/Palpation: + abdomen tender (To moderate palpation in the right lower quadrant mostly over McBurney's point) and abdomen soft Skin: no rashes, warm and dry Lymphatic: no cervical lymphadenopathy Principal Diagnosis Appendicitis Discharge Exam Constitutional well developed; no acute distress Gastrointestinal (Abdomen) Inspection/Auscultation: normal bowel sounds and + abdominal surgical incision (Clean dry and intact); abdomen not distended Discharge Data Allergies Allergy/AdvReac Type Severity Reaction Status Date / Time No Known Allergies Allergy Verified 09/22/18 20:20 Consultations 09/22/18 20:12 ED Decision to Admit Stat Procedures Performed Operation Date: 09/22/18 20:45 Actual Procedures p Laparoscopic Appendectomy(Not Applicable) - Rocky Mix MD Hospital Course (1) Acute appendicitis: The patient was taken to the operating room and underwent an uncomplicated laparoscopic appendectomy. On postoperative morning #1 she was feeling well and ambulating. She was eating a regular diet. She was passing flatus. She remained afebrile. Pathology is pending. Total Time Total Time Spent Total Time Spent (In Minutes): 15 min Discharge Plan Discharge Items Patient Disposition: Home - Self-Care Reason For Visit: APPENDICITIS Discharge Diagnosis: Appendicitis Discharge Goals: Decrease discomfort Activity: Per 'Additional Instructions' section Non-emergency contact: Surgeon Call non-emergency contact if: your temperature is above 101.5, your wound has increased redness and your wound has increased drainage Follow-up/Referrals: Yoandy Fernandes MD [Primary Care Provider] - Diet: Regular Addtl Provider Instructions: Post-Surgical ~Discharge Instructions Activity Recommendations: - lifting limitation: (10 pounds for 2 weeks), - exercise/sex/sports limit: (nonstrenuous for 2 weeks), - driving or machine use limit: (none for 1 week), - Shower/bathe limit: (may shower beginning tomorrow) Diet: - Resume previous diet SPECIAL CARE INSTRUCTIONS: - May shower in 24 hours. Let water run over area and pat dry. - Leave steri strips on for one week. - Call the surgeon's office with any questions or concerns - - (ex. temperature higher than 101 degrees F, excessive bleeding or pain). MEDICATIONS: - Resume previous medications unless instructed otherwise by your surgeon. - Ibuprofen 600 mg every 6 hours with food - Tylenol 650 mg every 6 hours as needed FOLLOW UP VISIT: - If not already scheduled, please call the office to schedule a two week follow-up appointment. Office number Prescriptions: Continued ferrous gluconate 240 mg (27 mg iron) tablet 240 mg PO [id number] RF: 0 rosuvastatin 5 mg tablet 5 mg PO HS Qty: 90 RF: 0 ranitidine HCl 150 mg tablet 150 - 300 mg PO DAILY Qty: 60 RF: 0 albuterol sulfate 90 mcg/actuation HFA aerosol inhaler 2 puffs INH Q6H PRN (Reason: shortness of breath or wheezing) Qty: 18 RF: 0 aspirin [Adult Aspirin Regimen] 81 mg tablet,delayed release (DR/EC) 81 mg PO DAILY Qty: 30 RF: 0 atenolol 25 mg tablet 12.5 mg PO DAILY Qty: 90 RF: 3 calcium carbonate [Calcium 500] 500 mg calcium (1,250 mg) tablet 500 mg PO DAILY Qty: 30 RF: 0 cetirizine [All Day Allergy (cetirizine)] 10 mg tablet 5 mg PO DAILY PRN (Reason: allergy symptoms) Qty: 30 RF: 0 multivit with min #[id number] 200 mcg-1,000 mcg-10 mg capsule 1 cap PO DAILY Qty: 30 RF: 0 omega-3 fatty acids [Fish Oil Concentrate] 1,000 mg capsule 1,000 mg PO DAILY Qty: 30 RF: 0 loratadine [Allergy Relief (loratadine)] 10 mg tablet 10 mg PO DAILY PRN (Reason: Allergy Symptoms) RF: 0 Stand-Alone Forms: [facility] Discharge Orders: Discharge Order (Routine); Ordered 09/23/18 Ordered By: Rocky Mix Admission Data Admit Date/Time: 09/22/18 22:41 Attending Provider: Rocky Mix Admit Provider: Rocky Mix Primary Care Provider: Yoandy Fernandes Other Providers: Rocky Mix Service: Surgical Services
[2018-09-23] MEDS ORDERED: ACETAMINOPHEN 325 MG TAB PO PRN (08:50)
== END 2018-09-23 10:46 | disposition home or self-care (01) ==
LOC: ED 18:18 → 3W 21:05 → OR 21:05